=== PATIENT | male | born 1965 | race Caucasian/White ===

== ENCOUNTER 2020-11-20 23:45 | Inpatient (IN) | payer MEDICARE ==
[~2020-11-20 23:45] MED LIST: ASPIRIN EC81 MG PO; BENAZEPRIL HCL20 MG PO; JANUMET 50-1,01 EACH PO; LOPRESSOR50 MG PO; NORCO 5-325 TA1 EACH PO; NORVASC5 MG PO; ZOFRAN4 MG PO
[2020-11-21 01:38] LABS: BASOPHIL 0.8 % (0-2); HCT 40.5 % (42.0-52.0); HGB 13.7 g/dl (13.2-18.0); LYMPHOCYTE 18.2 % (15-48); MCH 30.6 pg (25.0-31.0); MCHC 33.8 g/dL (32.0-36.0); MCV 90.6 fL (78.0-100.0); MONOCYTE 8.1 % (0-12); MPV 11.2 fL (6.0-9.5); NEUTROPHIL 71.4 % (41-80); NRBC 0; PLT 302 K/uL (150-400); RBC 4.47 M/uL (4.70-6.00); RDW 12.6 % (11.5-14.0); WBC 11.6 K/uL (4.0-10.5)
[2020-11-21 01:39] LABS: BILIRUBIN NEGATIVE (NEGATIVE); BLOOD TRACE-INTACT Ery/uL (NEGATIVE); CLARITY CLEAR (CLEAR); COLOR YELLOW (YELLOW); GLUCOSE (U) 3+ mg/dL (NORMAL); LEUKOCYTES NEGATIVE Leu/uL (NEGATIVE); NITRITE NEGATIVE (NEGATIVE); PROTEIN NEGATIVE (NEGATIVE); SPECIFIC GRAVITY 1.025 (1.001-1.030); UROBILINOGEN 0.2 mg/dL (0.2-1.0); pH 5.5 (5.0-9.0)
[2020-11-21 01:48] LABS: ALBUMIN 3.6 g/dL (3.4-5.0); BILIRUBIN - TOTAL 0.2 mg/dL (0.2-1.0); BUN/CREAT RATIO (CALC) 23.1 RATIO; CREATININE 0.78 mg/dL (0.67-1.17); GLOBULIN (CALCULATION) 4.2 g/dL; POTASSIUM 3.8 mmol/L (3.5-5.1); TOTAL PROTEIN 7.8 g/dL (6.4-8.2)
[2020-11-21 01:57] LABS: AMORPHOUS URATES CRYSTALS TRACE; MUCOUS TRACE; URINARY RBC RARE; URINARY WBC RARE
[2020-11-21 03:50] LABS: CORONAVIRUS 2019 SARS-COV-2 NEGATIVE (NEGATIVE); INFLUENZA A NAA NEGATIVE (NEGATIVE)
[2020-11-21] MEDS ORDERED: METFORMIN HCL500 MG PO (07:13)
[2020-11-21 07:17] LABS: CHOLESTEROL 184 mg/dL (<200); HDL 21 mg/dL (40-60); LDL - DIRECT 127 mg/dL (<100); TRIGLYCERIDES 257 mg/dL (<150)
--- NOTE | 2020-11-21 10:43 | NUR ---
Spoke with patient at bedside. Patient states he is independent in home. He has not home health. He lives with his sister and she is his POA- Tamella "Adali" Kash - P:[phone]
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
[2020-11-23 06:38] LABS: BASOPHIL 0.4 % (0-2); EOSINOPHIL 1.4 % (0-5); HCT 39.4 % (42.0-52.0); HGB 13.4 g/dl (13.2-18.0); MCH 30.7 pg (25.0-31.0); MCV 90.2 fL (78.0-100.0); MONOCYTE 6.6 % (0-12); MPV 10.8 fL (6.0-9.5); NEUTROPHIL 67.9 % (41-80); NRBC 0; PLT 300 K/uL (150-400); RBC 4.37 M/uL (4.70-6.00); RDW 12.4 % (11.5-14.0); WBC 7.7 K/uL (4.0-10.5)
[2020-11-23 07:00] LABS: BUN/CREAT RATIO (CALC) 9.9 RATIO; CREATININE 0.81 mg/dL (0.67-1.17)
[2021-01-30] MEDS ORDERED: PLAVIX75 MG PO (07:27)
[2021-01-30] MEDS ORDERED: GLUCOTROL XL5 MG PO (07:28)
[2021-01-30] MEDS ORDERED: ACETAMINOPHEN500 M1 PO (10:34)
[2021-01-30] MEDS ORDERED: MOTRIN600 MG PO (10:34)
[2021-01-30] MEDS ORDERED: OXY-IR 5MG5 MG PO (10:34)
[2021-01-30] MEDS ORDERED: COLACE100 MG PO (10:34)
== END 2020-11-23 15:57 | disposition home or self-care (01) | DRG 440 ==
LOC: FER 23:45 → FMS 11-21 05:10
PROVIDERS: Emergency Medicine; Internal Medicine; Nurse Practitioner; ADMIT Internal Medicine
DX: K85.90 Acute pancreatitis without necrosis or infection, unspecified (principal); E11.9 Type 2 diabetes mellitus without complications; Z20.822 Contact with and (suspected) exposure to COVID-19; I10 Essential (primary) hypertension; K21.9 Gastro-esophageal reflux disease without esophagitis; J44.9 Chronic obstructive pulmonary disease, unspecified; F17.210 Nicotine dependence, cigarettes, uncomplicated; E78.5 Hyperlipidemia, unspecified; G89.29 Other chronic pain; I25.10 Atherosclerotic heart disease of native coronary artery without angina pectoris; Z79.01 Long term (current) use of anticoagulants; I25.2 Old myocardial infarction; Z95.5 Presence of coronary angioplasty implant and graft; Z86.718 Personal history of other venous thrombosis and embolism; Z86.16 Personal history of COVID-19
CPT/HCPCS: 36415; 76705; 80048; 80053; 80061; 81001; 83036; 83690; 85025; 93005; G0378; J0360; J1170; J1650; J2270; J2405; J7030; Q9967; U0002

== ENCOUNTER → 2021-01-30 | Day surgery (SDC) | payer MEDICARE ==
[~2021-01-30] MED LIST changes: +ACETAMINOPHEN500 M1 PO; +COLACE100 MG PO; +GLUCOTROL XL5 MG PO; +METFORMIN HCL500 MG PO; +MOTRIN600 MG PO; +OXY-IR 5MG5 MG PO; +PLAVIX75 MG PO
[2021-01-30 07:59] LABS: BUN/CREAT RATIO (CALC) 22.8 RATIO; CREATININE 0.92 mg/dL (0.67-1.17); POTASSIUM 4.3 mmol/L (3.5-5.1)
== END | disposition home or self-care (01) ==
LOC: FAS 07:06
PROVIDERS: Anesthesiology
DX: K80.10 Calculus of gallbladder with chronic cholecystitis without obstruction (principal); K42.0 Umbilical hernia with obstruction, without gangrene; K82.8 Other specified diseases of gallbladder; I25.10 Atherosclerotic heart disease of native coronary artery without angina pectoris; I25.2 Old myocardial infarction; I10 Essential (primary) hypertension; J44.9 Chronic obstructive pulmonary disease, unspecified; E78.5 Hyperlipidemia, unspecified; E66.9 Obesity, unspecified; E11.9 Type 2 diabetes mellitus without complications; G47.30 Sleep apnea, unspecified; N52.9 Male erectile dysfunction, unspecified; F17.210 Nicotine dependence, cigarettes, uncomplicated; Z20.822 Contact with and (suspected) exposure to COVID-19; Z79.899 Other long term (current) drug therapy; Z79.84 Long term (current) use of oral hypoglycemic drugs; Z87.19 Personal history of other diseases of the digestive system; Z98.890 Other specified postprocedural states; Z80.0 Family history of malignant neoplasm of digestive organs; Z86.79 Personal history of other diseases of the circulatory system; Z95.828 Presence of other vascular implants and grafts
CPT/HCPCS: 36415; 74300; 80048; C1758; J0360; J0690; J1170; J1644; J1885; J2250; J2405; J2704; J2710; J3010; J3490; J7120; Q9967

== ENCOUNTER 2021-02-01 14:40 | Emergency (ER) | payer MEDICARE ==
[2021-02-01 15:40] LABS: BASOPHIL 0.6 % (0-2); EOSINOPHIL 0.9 % (0-5); HCT 45.8 % (42.0-52.0); HGB 15.8 g/dl (13.2-18.0); LYMPHOCYTE 7.6 % (15-48); MCHC 34.5 g/dL (32.0-36.0); MONOCYTE 6.4 % (0-12); MPV 10.7 fL (6.0-9.5); NEUTROPHIL 83.9 % (41-80); NRBC 0; PLT 320 K/uL (150-400); RBC 5.09 M/uL (4.70-6.00); WBC 13.7 K/uL (4.0-10.5)
[2021-02-01 15:44] LABS: ALBUMIN 3.7 g/dL (3.4-5.0); BILIRUBIN - TOTAL 1.3 mg/dL (0.2-1.0); BUN/CREAT RATIO (CALC) 16.7 RATIO; C-REACTIVE PROTEIN 2.8 mg/dL (<=0.90); CREATININE 0.72 mg/dL (0.67-1.17); GLOBULIN (CALCULATION) 4.9 g/dL; MAGNESIUM 1.6 mg/dL (1.8-2.4); POTASSIUM 4.1 mmol/L (3.5-5.1); TOTAL PROTEIN 8.6 g/dL (6.4-8.2)
[2021-02-01 15:57] LABS: LACTIC ACID 1.1 mmol/L (0.4-1.9)
== END 2021-02-01 18:22 | disposition home or self-care (01) ==
LOC: FER 14:40
PROVIDERS: Emergency Medicine
DX: G89.18 Other acute postprocedural pain (principal); R10.9 Unspecified abdominal pain; F17.210 Nicotine dependence, cigarettes, uncomplicated; Z20.822 Contact with and (suspected) exposure to COVID-19; Z90.49 Acquired absence of other specified parts of digestive tract
CPT/HCPCS: 36415; 80053; 83605; 83690; 83735; 84145; 85025; 86140; 87040; 93005; J1170; J2405; J7030; Q9967; U0002

== ENCOUNTER 2021-04-13 21:07 | Emergency (ER) | payer MEDICARE ==
[2021-04-13 21:24] LABS: BASOPHIL 0.7 % (0-2); EOSINOPHIL 1.3 % (0-5); HCT 41.3 % (42.0-52.0); HGB 14.5 g/dl (13.2-18.0); LYMPHOCYTE 27.5 % (15-48); MCH 31.4 pg (25.0-31.0); MCHC 35.1 g/dL (32.0-36.0); MCV 89.4 fL (78.0-100.0); MONOCYTE 6.9 % (0-12); MPV 10.2 fL (6.0-9.5); NEUTROPHIL 62.3 % (41-80); NRBC 0; PLT 393 K/uL (150-400); RBC 4.62 M/uL (4.70-6.00); RDW 12.6 % (11.5-14.0); WBC 9.6 K/uL (4.0-10.5)
[2021-04-13 21:33] LABS: INR 1.02 (0.9-1.2); PROTHROMBIN TIME 12.7 SECONDS (11.4-13.6); PTT 27.6 SECONDS (22.2-34.7)
[2021-04-13 21:40] LABS: ALBUMIN 3.9 g/dL (3.4-5.0); BILIRUBIN - TOTAL 0.3 mg/dL (0.2-1.0); BUN/CREAT RATIO (CALC) 16.8 RATIO; CREATININE 1.37 mg/dL (0.67-1.17); GLOBULIN (CALCULATION) 4.6 g/dL; POTASSIUM 4.5 mmol/L (3.5-5.1); TOTAL PROTEIN 8.5 g/dL (6.4-8.2)
== END 2021-04-14 01:25 | disposition other institution (70) ==
LOC: FER 21:07
PROVIDERS: Emergency Medicine
DX: I21.4 Non-ST elevation (NSTEMI) myocardial infarction (principal); I10 Essential (primary) hypertension; I25.10 Atherosclerotic heart disease of native coronary artery without angina pectoris; E11.9 Type 2 diabetes mellitus without complications; E78.5 Hyperlipidemia, unspecified; F17.210 Nicotine dependence, cigarettes, uncomplicated; Z95.5 Presence of coronary angioplasty implant and graft; Z79.84 Long term (current) use of oral hypoglycemic drugs; Z79.899 Other long term (current) drug therapy; Z79.02 Long term (current) use of antithrombotics/antiplatelets
CPT/HCPCS: 36415; 71045; 80053; 84484; 85025; 85610; 85730; 93005; J1644

== ENCOUNTER 2021-06-18 21:02 | Emergency (ER) | payer MEDICARE ==
[2021-06-18 22:03] LABS: BASOPHIL 0.8 % (0-2); HCT 43.2 % (42.0-52.0); HGB 15.2 g/dl (13.2-18.0); LYMPHOCYTE 30.3 % (15-48); MCH 31.9 pg (25.0-31.0); MCHC 35.2 g/dL (32.0-36.0); MCV 90.6 fL (78.0-100.0); MONOCYTE 6.1 % (0-12); MPV 10.5 fL (6.0-9.5); NEUTROPHIL 61.3 % (41-80); NRBC 0; PLT 369 K/uL (150-400); RBC 4.77 M/uL (4.70-6.00); RDW 12.3 % (11.5-14.0); WBC 10.5 K/uL (4.0-10.5)
[2021-06-18 22:07] LABS: INR 1.02 (0.9-1.2); PROTHROMBIN TIME 12.8 SECONDS (11.8-13.4)
[2021-06-18 22:08] LABS: PTT 27.5 SECONDS (24.4-34.7)
[2021-06-18 22:09] LABS: D-DIMER 0.45 ug/mLFEU (0.00-0.41)
[2021-06-18 22:14] LABS: ALBUMIN 3.4 g/dL (3.4-5.0); ALKALINE PHOSHATASE 119 U/L (46-116); ALT 56 U/L (16-63); AST 18 U/L (15-37); BILIRUBIN - TOTAL 0.2 mg/dL (0.2-1.0); BUN 14 mg/dL (7-18); BUN/CREAT RATIO (CALC) 13.5 RATIO; CHLORIDE 104 mmol/L (98-107); CO2 (BICARBONATE) 26 mmol/L (21-32); CPK 50 U/L (39-308); CREATININE 1.04 mg/dL (0.67-1.17); GLUCOSE 218 mg/dL (74-106); LIPASE 94 U/L (73-393); MAGNESIUM 1.6 mg/dL (1.8-2.4); POTASSIUM 4.2 mmol/L (3.5-5.1); TOTAL PROTEIN 7.4 g/dL (6.4-8.2)
[2021-06-18 22:28] LABS: LACTIC ACID 1.6 mmol/L (0.4-1.9)
[2021-06-18 23:38] LABS: BILIRUBIN NEGATIVE (NEGATIVE); BLOOD NEGATIVE Ery/uL (NEGATIVE); CLARITY CLEAR (CLEAR); COLOR YELLOW (YELLOW); GLUCOSE (U) 1+ mg/dL (NORMAL); LEUKOCYTES NEGATIVE Leu/uL (NEGATIVE); NITRITE NEGATIVE (NEGATIVE); PROTEIN NEGATIVE (NEGATIVE)
[2021-06-19] MEDS ORDERED: NORCO 5-325 TA1 EACH PO (01:46)
== END 2021-06-19 02:03 | disposition home or self-care (01) ==
LOC: FER 21:02
PROVIDERS: Emergency Medicine
DX: M54.5 Low back pain (principal); I71.4 Abdominal aortic aneurysm, without rupture; Z20.822 Contact with and (suspected) exposure to COVID-19; R10.9 Unspecified abdominal pain; Z79.84 Long term (current) use of oral hypoglycemic drugs; Z79.1 Long term (current) use of non-steroidal anti-inflammatories (NSAID); Z79.891 Long term (current) use of opiate analgesic; Z79.899 Other long term (current) drug therapy
CPT/HCPCS: 36415; 71275; 80053; 81003; 82550; 83605; 83690; 83735; 84145; 84484; 85025; 85379; 85610; 85730; 93005; G0480; J1170; J2405; Q9967; U0002

== ENCOUNTER 2022-02-07 20:05 | Emergency (ER) | payer MEDICARE ==
[2022-02-07 20:47] LABS: BASOPHIL 0.7 % (0-2); HCT 41.1 % (42.0-52.0); HGB 14.5 g/dl (13.2-18.0); LYMPHOCYTE 24.3 % (15-48); MCHC 35.3 g/dL (32.0-36.0); MCV 90.7 fL (78.0-100.0); MONOCYTE 6.2 % (0-12); MPV 10.7 fL (6.0-9.5); NEUTROPHIL 67.1 % (41-80); NRBC 0; PLT 360 K/uL (150-400); RBC 4.53 M/uL (4.70-6.00); RDW 11.7 % (11.5-14.0); WBC 11.3 K/uL (4.0-10.5)
[2022-02-07 20:55] LABS: BILIRUBIN NEGATIVE (NEGATIVE); BLOOD NEGATIVE Ery/uL (NEGATIVE); CLARITY CLEAR (CLEAR); COLOR YELLOW (YELLOW); GLUCOSE (U) 3+ mg/dL (NORMAL); LEUKOCYTES NEGATIVE Leu/uL (NEGATIVE); NITRITE NEGATIVE (NEGATIVE); PROTEIN NEGATIVE (NEGATIVE); SPECIFIC GRAVITY 1.015 (1.001-1.030); UROBILINOGEN 0.2 mg/dL (0.2-1.0)
[2022-02-07 21:07] LABS: ALBUMIN 3.1 g/dL (3.4-5.0); BILIRUBIN - TOTAL 0.1 mg/dL (0.2-1.0); BUN/CREAT RATIO (CALC) 20.6 RATIO; CREATININE 0.97 mg/dL (0.67-1.17); GLOBULIN (CALCULATION) 4.4 g/dL; POTASSIUM 4.2 mmol/L (3.5-5.1); TOTAL PROTEIN 7.5 g/dL (6.4-8.2)
== END 2022-02-07 22:28 | disposition home or self-care (01) ==
LOC: FER 20:05
PROVIDERS: Emergency Medicine
DX: E11.65 Type 2 diabetes mellitus with hyperglycemia (principal); I10 Essential (primary) hypertension; F17.200 Nicotine dependence, unspecified, uncomplicated
CPT/HCPCS: 36415; 71045; 80053; 81003; 83690; 84145; 84484; 85025; J7030